=== PATIENT | male | born 1965 | race Caucasian/White ===

== ENCOUNTER 2016-07-30 17:50 | Emergency (ER) | payer OTHER ==
[~2016-07-30] VITALS: Ht 177.8 cm; Wt 84.7 kg
[~2016-07-30 17:50] MED LIST: ADVAIR 250/501 DISK IH; ALBUTEROL SULF8.5 GM IH; ALLEVE; ASPERDRINK81 MG PO; ASPIRIN81 M1; Ativan PO; BP MED; Ecotrin PO; FLEXERIL10 MG PO; GENTAMICIN SULFA5 ML RIGHT EYE; LEXAPRO; Levaquin PO; NAPROSYN500 MG PO; NORCO 5/3251 TABLET PO; PEPTO BISMOL; PREDNISONE50 MG PO; TOPROL XL50 MG PO; Toprol XL PO; ULTRAM50 MG PO; VALIUM5 MG PO
[2016-07-30 18:40] LABS: BASOPHIL COUNT 0.2 K/uL (0-0.1); EOSINOPHIL (%) 2.9 % (0-5); EOSINOPHIL COUNT 0.3 K/uL (0-0.3); HEMATOCRIT 42.6 % (38.0-50.0); IMMATURE GRANULOCYTE (%) 0.6 % (0.0-0.7); IMMATURE GRANULOCYTE COUNT 0.1 K/uL; INSTRUMENT ABS NEUTROPHIL CT 5.3 K/uL; LYMPHOCYTE COUNT 2.3 K/uL (1.0-2.8); MCH 34.6 PG (29.0-34.0); MCV 98.8 FL (86-99); MEAN PLAT.VOLUME 9.2 uM^3 (9.0-12.4); MONOCYTE (%) 6.4 % (3-12); MONOCYTE COUNT 0.6 K/uL (0-0.8); NEUTROPHIL (%) 61.8 % (45-76); NEUTROPHIL COUNT 5.3 K/uL (1.8-6.4); PLATELET COUNT 205 K/uL (156-360); RBC DIS.WIDTH-CV 12.9 % (11.8-14.6); RBC DIS.WIDTH-SD 47.2 % (39-53); RED BLOOD COUNT 4.31 M/uL (4.00-5.50); WHITE BLOOD COUNT 8.5 K/uL (4.1-10.2)
[2016-07-30 19:02] LABS: CHLORIDE 97 mEq/L (99-109); POTASSIUM 3.7 mEq/L (3.7-5.4); SODIUM 131 mEq/L (136-147)
[2016-07-30 19:05] LABS: GLUCOSE 86 mg/dL (70-99)
[2016-07-30 19:06] LABS: ANION GAP 13 MEQ/L (2-14); D-DIMER ELISA 0.24 mg/L FEU (< 0.57)
[2016-07-30 19:07] LABS: TOTAL BILIRUBIN 0.2 mg/dL (0.0-1.0)
[2016-07-30 19:08] LABS: ALKALINE PHOSPHATASE 43 IU/L (3-129); SERUM ETHYL ALCOHOL 263 mg/dL
[2016-07-30 19:09] LABS: GFR ESTIMATE (CALCULATED) > 59 mL/min/
[2016-07-30 19:10] LABS: UREA NITROGEN (BUN) 6 mg/dL (9-23)
[2016-07-30 20:31] LABS: ADD MIUA? NO; BILIRUBIN NEGATIVE; BLOOD NEGATIVE; COLOR YELLOW ((YELLOW)); GLUCOSE (STRIP) NEGATIVE; KETONES NEGATIVE; LEUKOCYTES NEGATIVE; NITRITE NEGATIVE; PROTEIN (STRIP) NEGATIVE; SPECIFIC GRAVITY 1.006 (1.000-1.030); UROBILINOGEN 0.2 MG/DL (0.2-1.0)
[2016-07-30 21:05] LABS: AMPHETAMINE NEGATIVE (500 ng/mL); BARBITURATES NEGATIVE (200 ng/mL); BENZODIAZEPINES NEGATIVE (150 ng/mL); COCAINE NEGATIVE (150 ng/mL); INTERNAL CONTROLS VALID? YES; METHADONE NEGATIVE (200 ng/mL); METHAMPHETAMINE NEGATIVE (500 ng/mL); OPIATES (MORPHINE) PRESUMPTIVE POSITIVE (100 ng/mL); OXYCODONE NEGATIVE (100 ng/mL); PHENCYCLIDINE NEGATIVE (25 ng/mL); PROPOXYPHENE NEGATIVE (300 ng/mL); THC CANNABINOIDS NEGATIVE (50 ng/mL); TRICYCLIC ANTIDEPRESSANTS NEGATIVE (300 ng/mL)
[2016-07-30 21:06] LABS: ADD MEDTOX COMMENT Y
[2016-07-30] MEDS ORDERED: BIAXIN500 MG PO (21:47)
[2016-07-30] MEDS ORDERED: MEDROL DOSEPAK4 MG PO (23:58)
[2016-07-30] MEDS ORDERED: PROVENTIL HFA6.7 GM IH (23:58)
[2016-07-31 02:42] VITALS: BP 98/64
== END 2016-07-31 02:45 | disposition home or self-care (01) ==
LOC: EME 17:50
PROVIDERS: Emergency Medicine
DX: F10.129 Alcohol abuse with intoxication, unspecified (principal); J32.9 Chronic sinusitis, unspecified; J44.1 Chronic obstructive pulmonary disease with (acute) exacerbation; I10 Essential (primary) hypertension; Z79.82 Long term (current) use of aspirin; F17.200 Nicotine dependence, unspecified, uncomplicated; Z71.6 Tobacco abuse counseling; Y90.8 Blood alcohol level of 240 mg/100 ml or more
CPT/HCPCS: 70450; 71010; 80053; 81003; 84999; 85025; 85379; 93005; 94640; 94640 76; 99281; 99285; G0480; J1100; J2270; J7644

== ENCOUNTER 2016-09-08 16:59 | Emergency (ER) | payer OTHER ==
[~2016-09-08] VITALS: Ht 177.8 cm; Wt 88.6 kg
[~2016-09-08 16:59] MED LIST changes: +BIAXIN500 MG PO; +MEDROL DOSEPAK4 MG PO; +PROVENTIL HFA6.7 GM IH
[2016-09-08 18:06] LABS: BASOPHIL COUNT 0.1 K/uL (0-0.1); EOSINOPHIL (%) 2.8 % (0-5); EOSINOPHIL COUNT 0.2 K/uL (0-0.3); HEMATOCRIT 44.1 % (38.0-50.0); IMMATURE GRANULOCYTE (%) 0.5 % (0.0-0.7); INSTRUMENT ABS NEUTROPHIL CT 4.6 K/uL; LYMPHOCYTE COUNT 2.1 K/uL (1.0-2.8); MCH 34.5 PG (29.0-34.0); MCHC 34.9 G/DL (30.0-36.0); MCV 98.7 FL (86-99); MEAN PLAT.VOLUME 8.9 uM^3 (9.0-12.4); MONOCYTE (%) 7.2 % (3-12); MONOCYTE COUNT 0.5 K/uL (0-0.8); NEUTROPHIL (%) 61.4 % (45-76); NEUTROPHIL COUNT 4.6 K/uL (1.8-6.4); PLATELET COUNT 190 K/uL (156-360); RBC DIS.WIDTH-CV 12.7 % (11.8-14.6); RBC DIS.WIDTH-SD 45.9 % (39-53); RED BLOOD COUNT 4.47 M/uL (4.00-5.50); WHITE BLOOD COUNT 7.6 K/uL (4.1-10.2)
[2016-09-08 18:20] LABS: CHLORIDE 93 mEq/L (99-109); POTASSIUM 3.6 mEq/L (3.7-5.4); SODIUM 131 mEq/L (136-147)
[2016-09-08 18:22] LABS: GLUCOSE 96 mg/dL (70-99)
[2016-09-08 18:23] LABS: ANION GAP 12 MEQ/L (2-14)
[2016-09-08 18:25] LABS: GFR ESTIMATE (CALCULATED) > 59 mL/min/; SERUM ETHYL ALCOHOL 278 mg/dL
[2016-09-08 18:25] LABS: AMPHETAMINE NEGATIVE (500 ng/mL); BARBITURATES NEGATIVE (200 ng/mL); BENZODIAZEPINES NEGATIVE (150 ng/mL); COCAINE NEGATIVE (150 ng/mL); INTERNAL CONTROLS VALID? YES; METHADONE NEGATIVE (200 ng/mL); METHAMPHETAMINE NEGATIVE (500 ng/mL); OPIATES (MORPHINE) NEGATIVE (100 ng/mL); OXYCODONE NEGATIVE (100 ng/mL); PHENCYCLIDINE NEGATIVE (25 ng/mL); PROPOXYPHENE NEGATIVE (300 ng/mL); THC CANNABINOIDS NEGATIVE (50 ng/mL); TRICYCLIC ANTIDEPRESSANTS PRESUMPTIVE POSITIVE (300 ng/mL)
[2016-09-08 18:26] LABS: UREA NITROGEN (BUN) 3 mg/dL (9-23)
[2016-09-08] MEDS ORDERED: PERCOCET 5/31 TABLET PO (20:45)
[2016-09-08 21:06] VITALS: BP 112/78
== END 2016-09-08 21:07 | disposition home or self-care (01) ==
LOC: EME 16:59
PROVIDERS: Emergency Medicine
DX: M54.9 Dorsalgia, unspecified (principal); G89.29 Other chronic pain; M54.12 Radiculopathy, cervical region; F10.99 Alcohol use, unspecified with unspecified alcohol-induced disorder; I10 Essential (primary) hypertension; Z79.82 Long term (current) use of aspirin; F17.200 Nicotine dependence, unspecified, uncomplicated
CPT/HCPCS: 71020; 80048; 85025; 99281; 99285; G0480; J1885; J2270

== ENCOUNTER 2016-10-17 11:55 | Emergency (ER) | payer OTHER ==
[~2016-10-17] VITALS: Ht 175.3 cm; Wt 85.8 kg
[~2016-10-17 11:55] MED LIST changes: +PERCOCET 5/31 TABLET PO
[2016-10-17 13:05] LABS: HEMATOCRIT 41.4 % (38.0-50.0); MCH 35.3 PG (29.0-34.0); MCHC 35.5 G/DL (30.0-36.0); MCV 99.3 FL (86-99); MEAN PLAT.VOLUME 9.3 uM^3 (9.0-12.4); PLATELET COUNT 178 K/uL (156-360); RBC DIS.WIDTH-SD 44.4 % (39-53); RED BLOOD COUNT 4.17 M/uL (4.00-5.50)
[2016-10-17 13:11] LABS: CHLORIDE 99 mEq/L (99-109); POTASSIUM 3.6 mEq/L (3.7-5.4); SODIUM 136 mEq/L (136-147)
[2016-10-17 13:13] LABS: GLUCOSE 122 mg/dL (70-99)
[2016-10-17 13:14] LABS: ANION GAP 11 MEQ/L (2-14)
[2016-10-17 13:16] LABS: GFR ESTIMATE (CALCULATED) > 59 mL/min/
[2016-10-17 13:17] LABS: UREA NITROGEN (BUN) 6 mg/dL (9-23)
[2016-10-17 13:20] LABS: TROP-I INTERPRETATION NEGATIVE; TROPONIN-I < 0.01 ng/mL (0.0-0.30)
[2016-10-17 13:59] LABS: D-DIMER ELISA 0.22 mg/L FEU (< 0.57)
[2016-10-17 14:02] LABS: SERUM ETHYL ALCOHOL < 10 mg/dL
[2016-10-17 15:43] LABS: TROP-I INTERPRETATION NEGATIVE; TROPONIN-I < 0.01 ng/mL (0.0-0.30)
[2016-10-17 17:01] VITALS: BP 155/91
== END 2016-10-17 17:07 | disposition home or self-care (01) ==
LOC: EME 11:55
PROVIDERS: Emergency Medicine
DX: R42 Dizziness and giddiness (principal); E86.0 Dehydration; J44.9 Chronic obstructive pulmonary disease, unspecified; I10 Essential (primary) hypertension; F17.200 Nicotine dependence, unspecified, uncomplicated
CPT/HCPCS: 71020; 80048; 84484; 85027; 85379; 93005; 94640; 99281; 99285; G0480; J2060; J7030

== ENCOUNTER 2017-04-16 08:16 | Observation (INO) | payer OTHER ==
[~2017-04-16] VITALS: Ht 177.8 cm; Wt 85.7 kg
[~2017-04-16 08:16] MED LIST changes: -ASPERDRINK81 MG PO; +ASPIRIN EC325 MG PO; +TOPROL XL100 MG PO; -TOPROL XL50 MG PO
[2017-04-16 08:48] LABS: HEMATOCRIT 44.9 % (38.0-50.0); MCH 35.7 PG (29.0-34.0); MCHC 36.5 G/DL (30.0-36.0); MCV 97.8 FL (86-99); MEAN PLAT.VOLUME 9.3 uM^3 (9.0-12.4); PLATELET COUNT 170 K/uL (156-360); RBC DIS.WIDTH-CV 11.8 % (11.8-14.6); RBC DIS.WIDTH-SD 42.5 % (39-53); RED BLOOD COUNT 4.59 M/uL (4.00-5.50); WHITE BLOOD COUNT 6.7 K/uL (4.1-10.2)
[2017-04-16 08:58] LABS: CHLORIDE 98 mEq/L (99-109); POTASSIUM 4.1 mEq/L (3.7-5.4); SODIUM 135 mEq/L (136-147)
[2017-04-16 09:00] LABS: GLUCOSE 126 mg/dL (70-99)
[2017-04-16 09:01] LABS: ANION GAP 12 MEQ/L (2-14)
[2017-04-16 09:03] LABS: GFR ESTIMATE (CALCULATED) > 59 mL/min/ (58.99-99999)
[2017-04-16 09:04] LABS: UREA NITROGEN (BUN) 4 mg/dL (9-23)
[2017-04-16] MEDS ORDERED: PIROXICAM20 MG PO (11:06)
[2017-04-16] MEDS ORDERED: AMITRIPTYLINE H50 MG PO (11:06)
[2017-04-16] MEDS ORDERED: INCRUSE ELLI62.5 MCG IH (11:06)
[2017-04-16] MEDS ORDERED: CLONAZEPAM1 MG PO (11:06)
[2017-04-16] MEDS ORDERED: SERTRALINE HCL100 MG PO (11:07)
[2017-04-16 11:30] LABS: TROP-I INTERPRETATION NEGATIVE; TROPONIN-I < 0.01 ng/mL (0.0-0.30)
[2017-04-16 16:00] VITALS: BP 130/67
[2017-04-16 16:08] VITALS: BP 135/78
[2017-04-16 17:17] LABS: TROP-I INTERPRETATION NEGATIVE; TROPONIN-I < 0.01 ng/mL (0.0-0.30)
[2017-04-16 23:00] LABS: TROP-I INTERPRETATION NEGATIVE; TROPONIN-I < 0.01 ng/mL (0.0-0.30)
[2017-04-17 00:22] VITALS: BP 125/77
[2017-04-17 04:17] VITALS: BP 117/84
[2017-04-17 08:31] VITALS: BP 130/79
[2017-04-17] MEDS ORDERED: METOPROLOL SUCC50 MG PO (10:27)
== END 2017-04-17 13:06 | disposition home or self-care (01) ==
LOC: EME 08:16 → 5WEST 10:25 → EDOF 10:25 → ENRESERV 10:47 → 5WEST 15:55
PROVIDERS: Internal Medicine
DX: I95.1 Orthostatic hypotension (principal); S30.0XXA Contusion of lower back and pelvis, initial encounter; J44.9 Chronic obstructive pulmonary disease, unspecified; I10 Essential (primary) hypertension; F17.200 Nicotine dependence, unspecified, uncomplicated; Z86.73 Personal history of transient ischemic attack (TIA), and cerebral infarction without residual deficits; Z80.1 Family history of malignant neoplasm of trachea, bronchus and lung; Z82.5 Family history of asthma and other chronic lower respiratory diseases; Z87.19 Personal history of other diseases of the digestive system; Z79.82 Long term (current) use of aspirin; Z88.0 Allergy status to penicillin
CPT/HCPCS: 70450; 71020; 72131; 74176; 80048; 84484; 85027; 93005; 93306; 93880; 94640; 94640 76; 99202; 99281; 99285; G0378; J1650; J1885

== ENCOUNTER 2017-09-02 15:37 | Inpatient (IN) | payer OTHER ==
[~2017-09-02] VITALS: Ht 177.8 cm; Wt 88.5 kg
[~2017-09-02 15:37] MED LIST changes: +AMITRIPTYLINE H50 MG PO; +CLONAZEPAM1 MG PO; +INCRUSE ELLI62.5 MCG IH; +METOPROLOL SUCC50 MG PO; +PIROXICAM20 MG PO; +SERTRALINE HCL100 MG PO
[2017-09-02 17:45] LABS: BASE EXCESS 2.2 mEq/L (-3 to +3); BICARBONATE 25.1 mEq/L (22-26); CARBOXY HGB 5.7 % (0-5); PCO2 33 mm Hg (35-45); PO2 173 mm Hg (80-100); pH 7.49 (7.35-7.45)
[2017-09-02 17:46] LABS: COMMENTS - BLOOD GASES A+C=; DEVICE NC; O2 FLOW 2 L/MIN; SITE RR
[2017-09-02 17:48] LABS: HEMATOCRIT 37.5 % (38.0-50.0); HEMOGLOBIN 13.6 G/DL (12.5-16.6); MCH 36.1 PG (29.0-34.0); MCHC 36.3 G/DL (30.0-36.0); MCV 99.5 FL (86-99); PLATELET COUNT 180 K/uL (156-360); RBC DIS.WIDTH-CV 11.7 % (11.8-14.6); RBC DIS.WIDTH-SD 42.7 % (39-53); RED BLOOD COUNT 3.77 M/uL (4.00-5.50); WHITE BLOOD COUNT 6.7 K/uL (4.1-10.2)
[2017-09-02 17:58] LABS: ALBUMIN 3.6 g/dL (3.2-4.8); CHLORIDE 96 mEq/L (99-109); POTASSIUM 4.1 mEq/L (3.7-5.4); SODIUM 130 mEq/L (136-147)
[2017-09-02 18:00] LABS: GLUCOSE 81 mg/dL (70-99); TOTAL PROTEIN 5.5 g/dL (6.4-8.3)
[2017-09-02 18:02] LABS: TOTAL BILIRUBIN 0.2 mg/dL (0.0-1.0)
[2017-09-02 18:03] LABS: ALKALINE PHOSPHATASE 62 IU/L (3-129); SERUM ETHYL ALCOHOL 249 mg/dL
[2017-09-02 18:04] LABS: CREATININE 0.7 mg/dL (0.6-1.3); GFR ESTIMATE (CALCULATED) > 59 mL/min/ (58.99-99999)
[2017-09-02 18:05] LABS: AST (GOT) 44 IU/L (2-34); UREA NITROGEN (BUN) 8 mg/dL (9-23)
[2017-09-02 18:07] LABS: ALT (GPT) 38 IU/L (3-49)
[2017-09-02 18:09] LABS: TROP-I INTERPRETATION NEGATIVE; TROPONIN-I 0.02 ng/mL (0.0-0.30)
[2017-09-02] MEDS ORDERED: BACTRIM,SEPT1 TABLET PO (19:59)
[2017-09-02] MEDS ORDERED: TOPROL XL100 MG PO (20:33)
[2017-09-02] MEDS ORDERED: LIPITOR40 MG PO (20:35)
[2017-09-02] MEDS ORDERED: AMBIEN CR12.5 MG PO (20:35)
[2017-09-02] MEDS ORDERED: EFFEXOR XR75 MG PO (20:35)
[2017-09-02] MEDS ORDERED: TRAZODONE HCL50 MG PO (20:35)
[2017-09-02] MEDS ORDERED: EFFEXOR XR150 MG PO (20:35)
[2017-09-02] MEDS ORDERED: VISTARIL50 MG PO (20:36)
[2017-09-02 22:07] VITALS: BP 121/67
[2017-09-02 22:41] LABS: D-DIMER ELISA < 150.00 ng/mLDDU (<230)
[2017-09-02 22:55] LABS: TROP-I INTERPRETATION NEGATIVE; TROPONIN-I < 0.01 ng/mL (0.0-0.30)
[2017-09-03 04:25] VITALS: BP 135/63
[2017-09-03 05:50] LABS: HEMATOCRIT 37.9 % (38.0-50.0); HEMOGLOBIN 13.1 G/DL (12.5-16.6); MCH 34.7 PG (29.0-34.0); MCHC 34.6 G/DL (30.0-36.0); MCV 100.5 FL (86-99); PLATELET COUNT 173 K/uL (156-360); RBC DIS.WIDTH-CV 11.8 % (11.8-14.6); RBC DIS.WIDTH-SD 43.7 % (39-53); RED BLOOD COUNT 3.77 M/uL (4.00-5.50); WHITE BLOOD COUNT 2.6 K/uL (4.1-10.2)
[2017-09-03 06:17] LABS: CHLORIDE 105 MEQ/L (99-109); CREATININE 0.8 MG/DL (0.6-1.3); GFR ESTIMATE (CALCULATED) > 59 mL/min/ (58.99-99999); GLUCOSE 255 mg/dL (70-99); POTASSIUM 4.3 MEQ/L (3.7-5.4); SODIUM 137 MEQ/L (136-147); UREA NITROGEN (BUN) 8 mg/dL (9-23)
[2017-09-03 08:15] VITALS: BP 145/75
[2017-09-03 11:33] VITALS: BP 158/81
[2017-09-03 16:42] VITALS: BP 15/77
[2017-09-03 19:40] VITALS: BP 166/81
[2017-09-04 00:03] VITALS: BP 143/81
[2017-09-04 04:00] VITALS: BP 133/63
[2017-09-04 07:10] VITALS: BP 142/69
[2017-09-04] MEDS ORDERED: AERONEB GO NEB1 EACH MC (10:49)
[2017-09-04] MEDS ORDERED: PREDNISONE10 MG PO (10:49)
[2017-09-04] MEDS ORDERED: DUONEB 2.5-0.5 M3 ML AEROSOL (10:49)
[2017-09-04] MEDS ORDERED: FLOVENT 11120 INHALA IH (10:49)
[2017-09-04] MEDS ORDERED: LEVAQUIN750 MG PO (10:49)
== END 2017-09-04 13:54 | disposition home or self-care (01) | DRG 191 ==
LOC: EME 15:37 → 5SOUTH 20:29 → EDOF 20:29 → ENRESERV 20:30 → 5SOUTH 21:57
PROVIDERS: Emergency Medicine; Hospitalist
DX: J44.1 Chronic obstructive pulmonary disease with (acute) exacerbation (principal); E87.3 Alkalosis; I95.9 Hypotension, unspecified; E86.1 Hypovolemia; R06.03 Acute respiratory distress; M79.89 Other specified soft tissue disorders; F10.129 Alcohol abuse with intoxication, unspecified; Y90.8 Blood alcohol level of 240 mg/100 ml or more; I10 Essential (primary) hypertension; F32.9 Major depressive disorder, single episode, unspecified; F41.9 Anxiety disorder, unspecified; F17.200 Nicotine dependence, unspecified, uncomplicated; I69.354 Hemiplegia and hemiparesis following cerebral infarction affecting left non-dominant side; Z80.1 Family history of malignant neoplasm of trachea, bronchus and lung; Z79.82 Long term (current) use of aspirin
CPT/HCPCS: 36600; 71046; 80048; 80053; 81003; 82803; 83605; 83735; 83880; 84484; 85027; 85379; 87040; 87070; 87205; 93005; 93306; 93970; 94640; 94640 76; 94644; 94760; 94799; 99281; 99285; G0480; J1650; J1956; J2930; J7030

== ENCOUNTER 2017-09-13 17:55 | Inpatient (IN) | payer OTHER ==
[~2017-09-13] VITALS: Ht 180.3 cm; Wt 89.5 kg
[~2017-09-13 17:55] MED LIST changes: +AERONEB GO NEB1 EACH MC; +AMBIEN CR12.5 MG PO; +BACTRIM,SEPT1 TABLET PO; +DUONEB 2.5-0.5 M3 ML AEROSOL; +EFFEXOR XR150 MG PO; +EFFEXOR XR75 MG PO; +FLOVENT 11120 INHALA IH; +LEVAQUIN750 MG PO; +LIPITOR40 MG PO; +PREDNISONE10 MG PO; +TRAZODONE HCL50 MG PO; +VISTARIL50 MG PO
[2017-09-13 18:32] LABS: HEMATOCRIT 36.5 % (38.0-50.0); HEMOGLOBIN 13.4 G/DL (12.5-16.6); MCH 36.1 PG (29.0-34.0); MCHC 36.7 G/DL (30.0-36.0); MCV 98.4 FL (86-99); PLATELET COUNT 147 K/uL (156-360); RBC DIS.WIDTH-CV 12.1 % (11.8-14.6); RED BLOOD COUNT 3.71 M/uL (4.00-5.50)
[2017-09-13 18:42] LABS: CHLORIDE 97 mEq/L (99-109); POTASSIUM 3.7 mEq/L (3.7-5.4); SODIUM 134 mEq/L (136-147)
[2017-09-13 18:44] LABS: GLUCOSE 104 mg/dL (70-99)
[2017-09-13 18:48] LABS: CREATININE 0.7 mg/dL (0.6-1.3); GFR ESTIMATE (CALCULATED) > 59 mL/min/ (58.99-99999)
[2017-09-13 18:49] LABS: UREA NITROGEN (BUN) 6 mg/dL (9-23)
[2017-09-13 19:47] LABS: ALBUMIN 3.6 g/dL (3.2-4.8)
[2017-09-13 19:48] LABS: AMYLASE 30 IU/L (1-118)
[2017-09-13 19:50] LABS: TOTAL PROTEIN 5.8 g/dL (6.4-8.3)
[2017-09-13 19:52] LABS: TOTAL BILIRUBIN 0.5 mg/dL (0.0-1.0)
[2017-09-13 19:53] LABS: ALKALINE PHOSPHATASE 86 IU/L (3-129); SERUM ETHYL ALCOHOL 182 mg/dL
[2017-09-13 19:55] LABS: AST (GOT) 31 IU/L (2-34)
[2017-09-13 19:56] LABS: ALT (GPT) 35 IU/L (3-49); DIRECT BILIRUBIN 0.2 mg/dL (0.0-0.3)
[2017-09-13 19:57] LABS: CREATINE KINASE 130 IU/L (1-294); LIPASE 28 U/L (1.0-51.0)
[2017-09-13 20:02] LABS: TROP-I INTERPRETATION NEGATIVE; TROPONIN-I < 0.01 ng/mL (0.0-0.30)
[2017-09-13 20:36] LABS: APPEARANCE CLEAR ((CLEAR)); BILIRUBIN NEGATIVE; BLOOD NEGATIVE; COLOR STRAW ((YELLOW)); GLUCOSE (STRIP) NEGATIVE; KETONES NEGATIVE; LEUKOCYTES NEGATIVE; NITRITE NEGATIVE; PROTEIN (STRIP) NEGATIVE; UCUL ADDED? NO; UROBILINOGEN 0.2 MG/DL (0.2-1.0)
[2017-09-13 20:52] LABS: AMPHETAMINE NEGATIVE (500 ng/mL); BARBITURATES NEGATIVE (200 ng/mL); BENZODIAZEPINES PRESUMPTIVE POSITIVE (150 ng/mL); BUPRENORPHINE NEGATIVE (10 ng/mL); COCAINE NEGATIVE (150 ng/mL); METHADONE NEGATIVE (200 ng/mL); METHAMPHETAMINE NEGATIVE (500 ng/mL); OPIATES (MORPHINE) NEGATIVE (100 ng/mL); OXYCODONE NEGATIVE (100 ng/mL); PHENCYCLIDINE NEGATIVE (25 ng/mL); PROPOXYPHENE NEGATIVE (300 ng/mL); THC CANNABINOIDS NEGATIVE (50 ng/mL); TRICYCLIC ANTIDEPRESSANTS NEGATIVE (300 ng/mL)
[2017-09-13 21:23] LABS: BENZODIAZEPINES, URINE SCREEN Negative (200 ng/mL)
[2017-09-13] MEDS ORDERED: PREDNISONE10 MG PO (22:05)
[2017-09-14] VITALS (7 sets, daily range): BP systolic 133–158; BP diastolic 68–80
[2017-09-14 01:36] LABS: MAGNESIUM 2.1 mg/dL (1.3-2.7)
[2017-09-15 03:26] VITALS: BP 153/68
[2017-09-15 05:58] LABS: HEMATOCRIT 37.1 % (38.0-50.0); HEMOGLOBIN 12.4 G/DL (12.5-16.6); MCH 34.7 PG (29.0-34.0); MCHC 33.4 G/DL (30.0-36.0); PLATELET COUNT 146 K/uL (156-360); RBC DIS.WIDTH-CV 12.5 % (11.8-14.6); RBC DIS.WIDTH-SD 47.6 % (39-53); RED BLOOD COUNT 3.57 M/uL (4.00-5.50); WHITE BLOOD COUNT 12.6 K/uL (4.1-10.2)
[2017-09-15 06:06] LABS: MCV 103.9 FL (86-99)
[2017-09-15 06:08] LABS: CHLORIDE 108 MEQ/L (99-109); CREATININE 0.7 MG/DL (0.6-1.3); GFR ESTIMATE (CALCULATED) > 59 mL/min/ (58.99-99999); POTASSIUM 3.9 MEQ/L (3.7-5.4); UREA NITROGEN (BUN) 6 mg/dL (9-23)
[2017-09-15 06:11] LABS: GLUCOSE 215 mg/dL (70-99); SODIUM 143 MEQ/L (136-147)
[2017-09-15 07:40] VITALS: BP 159/77
[2017-09-15 11:56] VITALS: BP 147/68
[2017-09-15 15:35] VITALS: BP 142/66
[2017-09-15 19:44] VITALS: BP 159/71
[2017-09-15 23:21] VITALS: BP 140/62
[2017-09-16 03:50] VITALS: BP 169/80
[2017-09-16 07:31] VITALS: BP 182/82
[2017-09-16 10:28] LABS: BASOPHIL (%) 0.1 % (0-1); EOSINOPHIL (%) 0 % (0-5); HEMATOCRIT 35.5 % (38.0-50.0); IMMATURE GRANULOCYTE (%) 1.3 % (0.0-0.7); LYMPHOCYTE (%) 2.6 % (15-42); LYMPHOCYTE COUNT 0.4 K/uL (1.0-2.8); MCH 35.4 PG (29.0-34.0); MCHC 33.8 G/DL (30.0-36.0); MCV 104.7 FL (86-99); MONOCYTE (%) 3.2 % (3-12); MONOCYTE COUNT 0.5 K/uL (0-0.8); NEUTROPHIL (%) 92.8 % (45-76); NEUTROPHIL COUNT 15.4 K/uL (1.8-6.4); PLATELET COUNT 167 K/uL (156-360); RBC DIS.WIDTH-CV 13.1 % (11.8-14.6); RBC DIS.WIDTH-SD 49.9 % (39-53); RED BLOOD COUNT 3.39 M/uL (4.00-5.50); WHITE BLOOD COUNT 16.7 K/uL (4.1-10.2)
[2017-09-16 11:32] VITALS: BP 176/94
[2017-09-16 11:37] LABS: CHLORIDE 104 MEQ/L (99-109); CREATININE 0.8 MG/DL (0.6-1.3); GFR ESTIMATE (CALCULATED) > 59 mL/min/ (58.99-99999); GLUCOSE 139 mg/dL (70-99); POTASSIUM 3.9 MEQ/L (3.7-5.4); SODIUM 136 MEQ/L (136-147); UREA NITROGEN (BUN) 8 mg/dL (9-23)
[2017-09-16 15:21] VITALS: BP 128/75
[2017-09-16 20:18] VITALS: BP 166/81
[2017-09-16 23:49] VITALS: BP 140/63
[2017-09-17 04:14] VITALS: BP 177/84
[2017-09-17 06:07] LABS: HEMATOCRIT 38.1 % (38.0-50.0); HEMOGLOBIN 12.9 G/DL (12.5-16.6); MCH 34.8 PG (29.0-34.0); MCHC 33.9 G/DL (30.0-36.0); MCV 102.7 FL (86-99); PLATELET COUNT 169 K/uL (156-360); RBC DIS.WIDTH-CV 12.7 % (11.8-14.6); RBC DIS.WIDTH-SD 47.6 % (39-53); RED BLOOD COUNT 3.71 M/uL (4.00-5.50); WHITE BLOOD COUNT 12.1 K/uL (4.1-10.2)
[2017-09-17 06:33] LABS: CHLORIDE 100 MEQ/L (99-109); CREATININE 0.8 MG/DL (0.6-1.3); GFR ESTIMATE (CALCULATED) > 59 mL/min/ (58.99-99999); POTASSIUM 4.2 MEQ/L (3.7-5.4); SODIUM 135 MEQ/L (136-147); UREA NITROGEN (BUN) 8 mg/dL (9-23)
[2017-09-17 06:34] LABS: GLUCOSE 67 mg/dL (70-99)
[2017-09-17 07:57] VITALS: BP 166/85
[2017-09-17 12:12] VITALS: BP 168/85
[2017-09-17 16:25] VITALS: BP 168/87
[2017-09-17 20:01] VITALS: BP 163/81
[2017-09-17 23:31] VITALS: BP 140/69
[2017-09-18 04:36] VITALS: BP 137/76
[2017-09-18 05:50] LABS: HEMATOCRIT 36.8 % (38.0-50.0); HEMOGLOBIN 12.9 G/DL (12.5-16.6); MCH 35.1 PG (29.0-34.0); MCHC 35.1 G/DL (30.0-36.0); MCV 100.3 FL (86-99); PLATELET COUNT 159 K/uL (156-360); RBC DIS.WIDTH-CV 12.3 % (11.8-14.6); RBC DIS.WIDTH-SD 45.3 % (39-53); RED BLOOD COUNT 3.67 M/uL (4.00-5.50)
[2017-09-18 06:13] LABS: CHLORIDE 99 MEQ/L (99-109); CREATININE 0.8 MG/DL (0.6-1.3); GFR ESTIMATE (CALCULATED) > 59 mL/min/ (58.99-99999); GLUCOSE 82 mg/dL (70-99); POTASSIUM 4.1 MEQ/L (3.7-5.4); SODIUM 137 MEQ/L (136-147); UREA NITROGEN (BUN) 9 mg/dL (9-23)
[2017-09-18 08:01] VITALS: BP 140/78
[2017-09-18 12:31] VITALS: BP 129/70
[2017-09-18] MEDS ORDERED: LISINOPRIL10 MG PO (14:46)
[2017-09-18] MEDS ORDERED: AMLODIPINE BESY10 MG PO (14:46)
[2017-09-18] MEDS ORDERED: LEVAQUIN500 MG PO (14:47)
== END 2017-09-18 16:36 | DRG 190 ==
LOC: EME 17:55 → TRA 17:55 → 3EAST 23:37 → EDOF 23:37 → ENRESERV 23:40 → CANRESERV 23:40 → ENRESERV 09-14 00:48 → 3EAST 09-14 01:38
PROVIDERS: Emergency Medicine; Hospitalist; Internal Medicine; Physician Assistant
DX: J44.0 Chronic obstructive pulmonary disease with (acute) lower respiratory infection (principal); S22.32XA Fracture of one rib, left side, initial encounter for closed fracture; J15.9 Unspecified bacterial pneumonia; I10 Essential (primary) hypertension; J43.9 Emphysema, unspecified; I95.1 Orthostatic hypotension; F32.9 Major depressive disorder, single episode, unspecified; F17.210 Nicotine dependence, cigarettes, uncomplicated; S20.211A Contusion of right front wall of thorax, initial encounter; F41.9 Anxiety disorder, unspecified; W11.XXXA Fall on and from ladder, initial encounter; R07.81 Pleurodynia; M84.48XA Pathological fracture, other site, initial encounter for fracture; R32 Unspecified urinary incontinence; R09.02 Hypoxemia; F10.10 Alcohol abuse, uncomplicated; I69.354 Hemiplegia and hemiparesis following cerebral infarction affecting left non-dominant side; Z88.0 Allergy status to penicillin; Z91.09 Other allergy status, other than to drugs and biological substances; Z71.6 Tobacco abuse counseling; Y93.9 Activity, unspecified; Y92.9 Unspecified place or not applicable; Z80.1 Family history of malignant neoplasm of trachea, bronchus and lung; D72.829 Elevated white blood cell count, unspecified; T38.0X5A Adverse effect of glucocorticoids and synthetic analogues, initial encounter
CPT/HCPCS: 70450; 71045; 71101; 71260; 72125; 72129; 72132; 73090; 74177; 77075; 80048; 80076; 80202; 81003; 82150; 82550; 83605; 83690; 83735; 84484; 84999; 85025; 85027; 86850; 86900; 86901; 87040; 87070; 87081; 87205; 87641; 93005; 94010; 94640; 94640 76; 94799; 95819; 97530 GO; 99202; 99281; 99285; G0480; J0456; J0692; J1644; J1956; J2930; J3010; J3370; J3411; J3475; J7040; J7512; Q0177